=== PATIENT | male | born 1950 | race African-American/Black ===

== ENCOUNTER 2018-01-22 16:02 | Inpatient (IN) | payer OTHER ==
[2018-01-22 17:33] VITALS: BMI 35.2
--- NOTE | 2018-01-22 19:53 | HP ---
CIWA Score - CIWA Score Nausea/Vomitin-No Nausea/No Vomiting Muscle Tremors: 2 Anxiety: 3 Agitation: 3 Paroxysmal Sweats: 2 Orientation: 0-Oriented Tacttile Disturbances: 2-Mild Itch/Numbness/Burn Auditory Disturbances: 0-None Visual Disturbances: 0-None Headache: 0-None Present CIWA-Ar Total Score: 12 Admission ROS BHS - HPI Chief Complaint: alcohol withdrawla symptoms Allergies/Adverse Reactions: Allergies Allergy/AdvReac Type Severity Reaction Status Date / Time No Known Allergies Allergy Verified 01/22/18 19:09 History of Present Illness: 67 yo male with nicotine, marijuana and alcohol dependence is here seeking detox. Last detox 15 years ago at [facility]. PMHX urinary incontinence, UNGA b/t hearing aids DM II, HDL, HTN, seizure ( one year ago), OA , bipolar and bipolar. Denies suicidal / homicidal ideation. Exam Limitations: No Limitations - Ebola screening Have you traveled outside of the country in the last 21 days: No (N) Have you had contact with anyone from an Ebola affected area: No Have you been sick,other than usual withdrawal symptoms: No Do you have a fever: No - Review of Systems Constitutional: Changes in sleep, Other (weight gain x 10 lbs) EENT: reports: Cataracts (b/l), Other (glaucome both eyes) Respiratory: reports: No Symptoms reported Cardiac: reports: Palpitations, Other (cardiac Cath x 2, angina) GI: reports: No Symptoms Reported : reports: Incontinence Musculoskeletal: reports: Joint Pain Neuro: reports: No Symptoms reported Endocrine: reports: See HPI, Increased Thirst Hematology: reports: No Symptoms Reported Psychiatric: reports: Orientated x3, Anxious Patient History - Patient Medical History Hx Anemia: No Hx Asthma: No Hx Chronic Obstructive Pulmonary Disease (COPD): No Hx Cardiac Disorders: Yes (ANGINA 2012 AND 2014) Hx Congestive Heart Failure: Yes (SD 2016) Hx Hypertension: Yes Hx Hypercholesterolemia: Yes Hx Pacemaker: No HX Cerebrovascular Accident: Yes (2017) Hx Seizures: Yes (2017) Hx Dementia: No Hx Diabetes: Yes Hx Gastrointestinal Disorders: No Hx Liver Disease: No Hx Genitourinary Disorders: No Hx Sexually Transmitted Disorders: No Hx Renal Disease (ESRD): No Hx Thyroid Disease: No Hx Human Immunodeficiency Virus (HIV): No (last tested one week ago, Neg results ) Hx Hepatitis C: No Hx Depression: Yes Hx Suicide Attempt: Yes (2014 jumped infront of a bus ) Hx Bipolar Disorder: Yes Hx Schizophrenia: Yes - Patient Surgical History Past Surgical History: Yes Hx Cardiac Surgery: Yes (2012 AND 2014 CARDIAC CATH) Anesthesia Reaction: No - PPD History Previous Implant?: No Documented Results: Negative w/o proof PPD to be Administered?: Yes - Smoking Cessation Smoking history: Former smoker Have you smoked in the past 12 months: No Hx Chewing Tobacco Use: No Initiated information on smoking cessation: No - Substance & Tx. History Hx Alcohol Use: Yes Hx Substance Use: Yes Substance Use Type: Alcohol Hx Substance Use Treatment: Yes ([facility] 15 years ago ) - Substances Abused Alcohol Route: Oral Frequency: Daily Amount used: 5TH LIQUOR Age of first use: 22 Date of Last Use: 01/22/18 Marijuana/Hashish Route: Smoking Frequency: Daily Amount used: 6 BLUNTS Age of first use: 22 Date of Last Use: 01/22/18 Family Disease History - Family Disease History Family Disease History: Diabetes: Father (alive), CA: Mother ( ) Admission Physical Exam S - Vital Signs Vital Signs: Vital Signs - 24 hr 01/22/18 17:31 Temperature 98.6 F Pulse Rate 63 Respiratory 21 H Rate Blood Pressure 150/80 - Physical General Appearance: Yes: Mild Distress, Obese, Tremorous, Sweating, Anxious, Other (unkempt) HEENTM: Yes: Normal ENT Inspection, Normocephalic, Normal Voice, Pharynx Normal , Tm's normal, Hearing Decreased (b/l) Respiratory: Yes: Chest Non-Tender, Lungs Clear, Normal Breath Sounds, No Respiratory Distress, No Accessory Muscle Use Neck: Yes: Within Normal Limits Breast: Yes: Breast Exam Deferred Cardiology: Yes: Regular Rhythm, Regular Rate Abdominal: Yes: Normal Bowel Sounds, Non Tender, Soft, Protuberent Genitourinary: Yes: Within Normal Limits Back: Yes: Normal Inspection Musculoskeletal: Yes: full range of Motion, Gait Steady, Pelvis Stable, Back pain, Other (cane for ambulation) Extremities: Yes: Normal Capillary Refill, Normal Inspection, Normal Range of Motion, Non-Tender Neurological: Yes: it network administrator II-XII NML intact, Fully Oriented, Alert, Motor Strength 5/5, Depressed Affect Integumentary: Yes: Normal Color, Warm, Diaphoresis Lymphatic: Yes: Within Normal Limits - Diagnostic (1) Alcohol dependence with withdrawal Current Visit: Yes Status: Acute Qualifiers: Complication of substance-induced condition: uncomplicated Qualified Code(s ): F10.230 - Alcohol dependence with withdrawal, uncomplicated (2) Diabetes mellitus type 2 in obese Current Visit: Yes Status: Chronic (3) Hypertension Current Visit: Yes Status: Chronic Qualifiers: Hypertension type: essential hypertension Qualified Code(s): I10 - Essential (primary) hypertension (4) Arthritis Current Visit: Yes Status: Acute (5) Seizure Current Visit: Yes Status: Chronic (6) Urinary incontinence Current Visit: Yes Status: Chronic Qualifiers: Urinary Incontinence type: unspecified incontinence Qualified Code(s): R32 - Unspecified urinary incontinence Cleared for Admission BHS - Detox or Rehab [facility] Level of Care: Medically Managed Detox Regimen/Protocol: Librium S Breath Alcohol Content Breath Alcohol Content: 0 Urine Drug Screen - Results Drug Screen Negative: No Urine Drug Screen Results: THC-Marijuana
[2018-01-22] MEDS ORDERED: ALBUTEROL SO4 0.083% IH SOL 2.5 MG/3 ML VIAL.NEB. NEB PRN (19:58)
[2018-01-22] MEDS ORDERED: ALBUTEROL SO4 8 GM HFA INHALER IH PRN (19:58)
[2018-01-22] MEDS ORDERED: LOPERAMIDE HCL 2 MG CAPSULE PO PRN (20:05)
[2018-01-22] MEDS ORDERED: MENTHOL/PHENOL 1 EACH UD MM PRN (20:05)
[2018-01-22] MEDS ORDERED: MAGNESIUM CITRATE 300 ML BOTTLE PO PRN (20:05)
[2018-01-22] MEDS ORDERED: hydrOXYzine PAMOATE 50 MG CAPSULE (FP) PO PRN (20:05)
[2018-01-22] MEDS ORDERED: MAGNESIUM HYDROX 2400MG/30ML ORAL SUSPENSION 30 ML CUP PO PRN (20:05)
[2018-01-22] MEDS ORDERED: chlordiazePOXIDE HCL 25 MG CAPSULE PO ONE (20:05)
[2018-01-22] MEDS ORDERED: guaiFENesin/D-METHORPHAN HB 10 ML UNIT-DOSE CUPS PO PRN (20:05)
[2018-01-22] MEDS ORDERED: MAG HYDROX/AL HYDROX/SIMETH 30 ML UNIT-DOSE CUP PO PRN (20:05)
[2018-01-22] MEDS ORDERED: ACETAMINOPHEN 325 MG TABLET (FP) PO PRN (20:05)
[2018-01-22] MEDS ORDERED: P-EPHED 60MG/TRIPROLIDI 2.5MG TABLET PO PRN (20:05)
[2018-01-22] MEDS ORDERED: MELATONIN 5 MG TABLETS PO PRN (22:00)
[2018-01-22] MEDS: levETIRAcetam 500 MG TABLET (FP) PO SCH (22:34)
[2018-01-22] MEDS: chlordiazePOXIDE HCL 25 MG CAPSULE PO SCH (22:35)
[2018-01-22] MEDS: THIAMINE HCL 100 MG TABLET (FP) PO SCH (22:35)
[2018-01-23 01:01] LABS: URINE APPEARANCE CLEAR; URINE BILIRUBIN NEGATIVE (<2.0 mg/dL); URINE COLOR YELLOW; URINE GLUCOSE (UA) NEGATIVE (NEGATIVE); URINE KETONE NEGATIVE (NEGATIVE); URINE LEUK ESTERASE NEGATIVE (NEGATIVE); URINE NITRITE NEGATIVE (NEGATIVE); URINE PROTEIN NEGATIVE (NEGATIVE); URINE UROBILINOGEN NEGATIVE mg/dL (0.2-1.0)
[2018-01-23] MEDS: metFORMIN HCL 500 MG TABLET (FP) PO SCH ×2 (06:37→17:49)
[2018-01-23] MEDS: chlordiazePOXIDE HCL 25 MG CAPSULE PO SCH ×4 (06:38→22:50)
[2018-01-23 10:04] LABS: HEMATOCRIT 38.8 % (35.4-49); HEMOGLOBIN 12.4 GM/dL (11.7-16.9); MCH 28.1 pg (25.7-33.7); MCHC 31.9 g/dl (32.0-35.9); MEAN PLT VOLUME 9.6 fl (7.5-11.1); PLATELET COUNT 224 K/MM3 (134-434); RBC 4.41 M/mm3 (4.00-5.60); RDW 13.7 % (11.9-15.9); WHITE BLOOD COUNT 6.9 K/mm3 (4.0-10.0)
--- NOTE | 2018-01-23 10:13 | EKG ---
Test Reason : Blood Pressure : / mmHG Vent. Rate : 067 BPM Atrial Rate : 067 BPM P-R Int : 158 ms QRS Dur : 088 ms QT Int : 370 ms P-R-T Axes : 048 042 056 degrees QTc Int : 390 ms SINUS RHYTHM WITH OCCASIONAL PREMATURE VENTRICULAR COMPLEXES AND PREMATURE ATRIAL COMPLEXES OTHERWISE NORMAL ECG NO PREVIOUS ECGS AVAILABLE Confirmed by LIZBETH WEST MD ([id number]) on 01/23/2018 10:13:40 AM Referred By: Confirmed By:LIZBETH WEST MD
[2018-01-23 10:30] LABS: ALK PHOS 62 U/L (45-117); ANION GAP 4 MMOL/L (8-16); BILIRUBIN,TOTAL 0.3 mg/dL (0.2-1); BLOOD UREA NITROGEN 14 mg/dL (7-18); CALCIUM 9.1 mg/dL (8.5-10.1); CHLORIDE 109 mmol/L (98-107); CO2 28 mmol/L (21-32); CREATININE 0.7 mg/dL (0.55-1.3); GLUCOSE,RANDOM 86 mg/dL (74-106); POTASSIUM 4.2 mmol/L (3.5-5.1); SGOT/AST 14 U/L (15-37); SGPT/ALT 15 U/L (13-61); SODIUM 140 mmol/L (136-145); TOT PROT 6.2 g/dl (6.4-8.2)
--- NOTE | 2018-01-23 10:38 | PN ---
S CIWA - CIWA Score Nausea/Vomitin-Mild Nausea/No Vomiting Muscle Tremors: 1-None Visible, but [place] Anxiety: 1-Mildly Anxious Agitation: 0-Normal Activity Paroxysmal Sweats: No Perspiration Orientation: 0-Oriented Tacttile Disturbances: 0-None Auditory Disturbances: 0-None Visual Disturbances: 0-None Headache: 3-Moderate CIWA-Ar Total Score: 6 BHS Progress Note (SOAP) Subjective: PATIENT C/O MILD NAUSEA, SHAKES, INSOMNIA AND HEADACHE. Objective: 01/23/18 10:36 Vital Signs Temperature 97.3 F L 01/23/18 10:01 Pulse Rate 66 01/23/18 10:01 Respiratory Rate 18 01/23/18 10:01 Blood Pressure 156/80 01/23/18 10:01 O2 Sat by Pulse Oximetry (%) Laboratory Tests 01/23/18 01/23/18 01/23/18 00:30 06:19 07:00 WBC 6.9 RBC 4.41 Hgb 12.4 Hct 38.8 MCV 88.0 MCH 28.1 MCHC 31.9 L RDW 13.7 Plt Count 224 MPV 9.6 Sodium Potassium Chloride Carbon Dioxide Anion Gap BUN Creatinine Creat Clearance w eGFR POC Glucometer 103 Random Glucose Calcium Total Bilirubin AST ALT Alkaline Phosphatase Total Protein Albumin Urine Color Yellow Urine Appearance Clear Urine pH 6.0 Ur Specific [place] 1.026 Urine Protein Negative Urine Glucose (UA) Negative Urine Ketones Negative Urine Blood Negative Urine Nitrite Negative Urine Bilirubin Negative Urine Urobilinogen Negative Ur Leukocyte Esterase Negative 01/23/18 07:00 WBC RBC Hgb Hct MCV MCH MCHC RDW Plt Count MPV Sodium 140 Potassium 4.2 Chloride 109 H Carbon Dioxide 28 Anion Gap 4 L BUN 14 Creatinine 0.7 Creat Clearance w eGFR > 60 POC Glucometer Random Glucose 86 Calcium 9.1 Total Bilirubin 0.3 AST 14 L ALT 15 Alkaline Phosphatase 62 Total Protein 6.2 L Albumin 3.0 L Urine Color Urine Appearance Urine pH Ur Specific [place] Urine Protein Urine Glucose (UA) Urine Ketones Urine Blood Urine Nitrite Urine Bilirubin Urine Urobilinogen Ur Leukocyte Esterase PE: ALERT AND ORIENTED SKIN WARM AND DRY CAR S1S2 RESP CTA BL EXT + MILD TREMORS, FULL ROM, + PEDAL EDEMA B/L Assessment: 01/23/18 10:36 WITHDRAWAL SYNDROME Plan: CONTINUE DETOX ENCOURAGE ORAL FLUIDS CONTINUE TO MONITOR CLINICALLY LEG ELEVATION ENCOURAGED WHILE IN BED
[2018-01-23] MEDS: ASPIRIN 81 MG CHEWABLE TABLETS PO SCH (10:57)
[2018-01-23] MEDS: levETIRAcetam 500 MG TABLET (FP) PO SCH ×2 (10:57→22:50)
[2018-01-23] MEDS: FUROSEMIDE 20 MG TABLET (FP) PO SCH (10:58)
[2018-01-23] MEDS: chlordiazePOXIDE HCL 25 MG CAPSULE PO PRN (10:58)
[2018-01-23] MEDS: CLOPIDOGREL BISULFATE 75 MG TABLET (FP) PO SCH (10:58)
[2018-01-23] MEDS: PRENATAL VITAMINS W/ FOLIC ACID TABLET (FP) PO SCH (10:58)
--- NOTE | 2018-01-23 11:09 | CONSULT ---
[facility] Psychiatric Consult - Data Date of interview: 01/23/18 Admission source: [facility] Identifying data: Patient is a 67 year old single male, father of six, unemployed, homeless, and is currently supported by [facility]. This is patient's first admission to detox at [facility]. Patient admitted to for alcohol dependence. Substance Abuse History: - Smoking Cessation. Smoking history: Former smoker. Have you smoked in the past 12 months: No. Hx Chewing Tobacco Use: No. Initiated information on smoking cessation: No. - Substance & Tx. History. Hx Alcohol Use: Yes. Hx Substance Use: Yes. Substance Use Type: Alcohol. Hx Substance Use Treatment: Yes ([facility] 15 years ago ). - Substances Abused. Alcohol. Route: Oral. Frequency: Daily. Amount used: 5TH LIQUOR. Age of first use: 22. Date of Last Use: 01/22/18. Marijuana/Hashish. Route: Smoking. Frequency: Daily. Amount used: 6 BLUNTS. Age of first use: 22. Date of Last Use: 01/22/18 Medical History: Cataract, detach retina, cardiac stent Psychiatric History: Patient's first psychiatric contact was at 20 years of age after reporting that he felt depressed and was experiencing auditory halluincations. Patient recalls accepting thorazine during that time. He reports multiple psychiatric hospitalizations, most recently in 2014 at [facility] after a suicide attempt via jumping in front of a bus. Patient is also known to [facility], and [facility]. Current outpatient psychiatric care is provided at [facility] in [place], [place]. He reports taking haldol 5mg BID + Seroquel 50mg BID. Self reports h/o schizophrenia. No psychosis noted. Patient's information on psychotrophic medication is questionable. No prior records in chart and no information on pharmacy claims. Will contact [facility] for additional collaterol. Physical/Sexual Abuse/Trauma History: denies. Mental Status Exam - Mental Status Exam Alert and Oriented to: Time, Place, Person Cognitive Function: Good Patient Appearance: Well Groomed Mood: Euthymic Affect: Mood Congruent Patient Behavior: Fatigued, Cooperative Speech Pattern: Appropriate Voice Loudness: Normal Thought Process: Intact Thought Disorder: Not Present Hallucinations: Denies Suicidal Ideation: Denies Homicidal Ideation: Denies Insight/Judgement: Poor Sleep: Poorly Appetite: Fair Muscle strength/Tone: Normal Gait/Station: Normal Psychiatric Findings - Problem List ([place] 1, 2,3) (1) Schizophrenia Current Visit: Yes Status: Chronic (2) Alcohol dependence with withdrawal Current Visit: Yes Status: Acute Qualifiers: Complication of substance-induced condition: uncomplicated Qualified Code(s ): F10.230 - Alcohol dependence with withdrawal, uncomplicated - Initial Treatment Plan Initial Treatment Plan: Psychoeducation provided. Detoxification in progress. Contact made with the [facility] at [phone] and able to speak to JESSICA Loomis who stated patient has a h/o noncompliance to medications and is not adherent to accepting haldol and seroquel. JESSICA Rodriguez did mention that patient does accept depakote 250 BID. Will continue patient on depakote 250mg BID and will order seroquel 50mg for insomnia. Valproic acid level ordered for 01/24/18. Verbal consent given.
[2018-01-23] MEDS: THIAMINE HCL 100 MG TABLET (FP) PO SCH (22:50)
[2018-01-23] MEDS: QUEtiapine FUMARATE 50 MG TABLET PO SCH (22:50)
[2018-01-23] MEDS: DIVALPROEX SODIUM 250 MG TABLET E.C. PO SCH (22:50)
[2018-01-24] MEDS: PRENATAL VITAMINS W/ FOLIC ACID TABLET (FP) PO SCH (10:42)
[2018-01-24] MEDS: FUROSEMIDE 20 MG TABLET (FP) PO SCH (10:42)
[2018-01-24] MEDS: levETIRAcetam 500 MG TABLET (FP) PO SCH ×2 (10:42→22:51)
[2018-01-24] MEDS: CLOPIDOGREL BISULFATE 75 MG TABLET (FP) PO SCH (10:42)
[2018-01-24] MEDS: chlordiazePOXIDE HCL 25 MG CAPSULE PO PRN (10:42)
[2018-01-24] MEDS: DIVALPROEX SODIUM 250 MG TABLET E.C. PO SCH ×2 (10:42→22:51)
[2018-01-24] MEDS: ASPIRIN 81 MG CHEWABLE TABLETS PO SCH (10:42)
[2018-01-24] MEDS: chlordiazePOXIDE HCL 25 MG CAPSULE PO SCH ×2 (10:45→18:13)
--- NOTE | 2018-01-24 14:23 | PN ---
[facility] CIWA - CIWA Score Nausea/Vomitin-No Nausea/No Vomiting Muscle Tremors: 1-None Visible, but [place] Anxiety: 3 Agitation: 1-Slight > Activity Paroxysmal Sweats: 2 Orientation: 0-Oriented Tacttile Disturbances: 1-Very Mild Itch/Numbness Auditory Disturbances: 0-None Visual Disturbances: 1-Very Mild Sensitivity Headache: 0-None Present CIWA-Ar Total Score: 9 S Progress Note (SOAP) Subjective: back pain, body aches, interrupted sleep Objective: 01/24/18 14:22 Vital Signs Temperature 97.5 F L 01/24/18 10:42 Pulse Rate 62 01/24/18 10:42 Respiratory Rate 16 01/24/18 10:42 Blood Pressure 148/68 01/24/18 10:42 O2 Sat by Pulse Oximetry (%) Laboratory Last Values WBC 6.9 K/mm3 (4.0-10.0) 01/23/18 07:00 RBC 4.41 M/mm3 (4.00-5.60) 01/23/18 07:00 Hgb 12.4 GM/dL (11.7-16.9) 01/23/18 07:00 Hct 38.8 % (35.4-49) 01/23/18 07:00 MCV 88.0 fl (80-96) 01/23/18 07:00 MCH 28.1 pg (25.7-33.7) 01/23/18 07:00 MCHC 31.9 g/dl (32.0-35.9) L 01/23/18 07:00 RDW 13.7 % (11.9-15.9) 01/23/18 07:00 Plt Count 224 K/MM3 (134-434) 01/23/18 07:00 MPV 9.6 fl (7.5-11.1) 01/23/18 07:00 Sodium 140 mmol/L (136-145) 01/23/18 07:00 Potassium 4.2 mmol/L (3.5-5.1) 01/23/18 07:00 Chloride 109 mmol/L (98-107) H 01/23/18 07:00 Carbon Dioxide 28 mmol/L (21-32) 01/23/18 07:00 Anion Gap 4 MMOL/L (8-16) L 01/23/18 07:00 BUN 14 mg/dL (7-18) 01/23/18 07:00 Creatinine 0.7 mg/dL (0.55-1.3) 01/23/18 07:00 Creat Clearance w eGFR > 60 (>60) 01/23/18 07:00 POC Glucometer 85 UNITS (80-120) 01/24/18 07:42 Random Glucose 86 mg/dL (74-106) 01/23/18 07:00 Calcium 9.1 mg/dL (8.5-10.1) 01/23/18 07:00 Total Bilirubin 0.3 mg/dL (0.2-1) 01/23/18 07:00 AST 14 U/L (15-37) L 01/23/18 07:00 ALT 15 U/L (13-61) 01/23/18 07:00 Alkaline Phosphatase 62 U/L (45-117) 01/23/18 07:00 Total Protein 6.2 g/dl (6.4-8.2) L 01/23/18 07:00 Albumin 3.0 g/dl (3.4-5.0) L 01/23/18 07:00 Urine Color Yellow 01/23/18 00:30 Urine Appearance Clear 01/23/18 00:30 Urine pH 6.0 (5.0-8.0) 01/23/18 00:30 Ur Specific [place] 1.026 (1.010-1.035) 01/23/18 00:30 Urine Protein Negative (NEGATIVE) 01/23/18 00:30 Urine Glucose (UA) Negative (NEGATIVE) 01/23/18 00:30 Urine Ketones Negative (NEGATIVE) 01/23/18 00:30 Urine Blood Negative (NEGATIVE) 01/23/18 00:30 Urine Nitrite Negative (NEGATIVE) 01/23/18 00:30 Urine Bilirubin Negative (<2.0 mg/dL) 01/23/18 00:30 Urine Urobilinogen Negative mg/dL (0.2-1.0) 01/23/18 00:30 Ur Leukocyte Esterase Negative (NEGATIVE) 01/23/18 00:30 Valproic Acid 44.8 ug/ml (50-100) L 01/24/18 08:10 RPR Titer Nonreactive (NONREACTIVE) 01/23/18 07:00 Aox3 no distress no adventitious breath sounds full ROM ambulating in the unit with cane Assessment: 01/24/18 14:22 wihtdrawal sx Plan: increase fluids continue detox continue to monitor
[2018-01-24] MEDS: LIDOCAINE 5% TOPICAL PATCH TP SCH (18:14)
[2018-01-24] MEDS: metFORMIN HCL 500 MG TABLET (FP) PO SCH (18:14)
[2018-01-24] MEDS: QUEtiapine FUMARATE 50 MG TABLET PO SCH (22:51)
[2018-01-24] MEDS: chlordiazePOXIDE 5 MG CAPSULE PO SCH (22:51)
[2018-01-24] MEDS: THIAMINE HCL 100 MG TABLET (FP) PO SCH (22:51)
[2018-01-24] MEDS: LIDOCAINE PATCH REMOVAL MC SCH (22:53)
[2018-01-25] MEDS: chlordiazePOXIDE HCL 25 MG CAPSULE PO SCH (01:22)
[2018-01-25] MEDS: metFORMIN HCL 500 MG TABLET (FP) PO SCH ×3 (01:22→18:02)
[2018-01-25] MEDS: chlordiazePOXIDE 5 MG CAPSULE PO SCH ×3 (05:40→18:02)
[2018-01-25] MEDS: levETIRAcetam 500 MG TABLET (FP) PO SCH ×2 (10:08→22:48)
[2018-01-25] MEDS: CLOPIDOGREL BISULFATE 75 MG TABLET (FP) PO SCH (10:08)
[2018-01-25] MEDS: FUROSEMIDE 20 MG TABLET (FP) PO SCH (10:08)
[2018-01-25] MEDS: ASPIRIN 81 MG CHEWABLE TABLETS PO SCH (10:08)
[2018-01-25] MEDS: DIVALPROEX SODIUM 250 MG TABLET E.C. PO SCH ×2 (10:08→22:48)
[2018-01-25] MEDS: PRENATAL VITAMINS W/ FOLIC ACID TABLET (FP) PO SCH (10:08)
[2018-01-25] MEDS: LIDOCAINE 5% TOPICAL PATCH TP SCH (10:10)
--- NOTE | 2018-01-25 15:15 | PN ---
BHS Progress Note (SOAP) Subjective: feeling better no tremor less sweat no gi distress Objective: 01/25/18 15:12 Vital Signs Temperature 97.9 F 01/25/18 14:32 Pulse Rate 76 01/25/18 14:32 Respiratory Rate 16 01/25/18 14:32 Blood Pressure 150/81 01/25/18 14:32 O2 Sat by Pulse Oximetry (%) Laboratory Last Values WBC 6.9 K/mm3 (4.0-10.0) 01/23/18 07:00 RBC 4.41 M/mm3 (4.00-5.60) 01/23/18 07:00 Hgb 12.4 GM/dL (11.7-16.9) 01/23/18 07:00 Hct 38.8 % (35.4-49) 01/23/18 07:00 MCV 88.0 fl (80-96) 01/23/18 07:00 MCH 28.1 pg (25.7-33.7) 01/23/18 07:00 MCHC 31.9 g/dl (32.0-35.9) L 01/23/18 07:00 RDW 13.7 % (11.9-15.9) 01/23/18 07:00 Plt Count 224 K/MM3 (134-434) 01/23/18 07:00 MPV 9.6 fl (7.5-11.1) 01/23/18 07:00 Sodium 140 mmol/L (136-145) 01/23/18 07:00 Potassium 4.2 mmol/L (3.5-5.1) 01/23/18 07:00 Chloride 109 mmol/L (98-107) H 01/23/18 07:00 Carbon Dioxide 28 mmol/L (21-32) 01/23/18 07:00 Anion Gap 4 MMOL/L (8-16) L 01/23/18 07:00 BUN 14 mg/dL (7-18) 01/23/18 07:00 Creatinine 0.7 mg/dL (0.55-1.3) 01/23/18 07:00 Creat Clearance w eGFR > 60 (>60) 01/23/18 07:00 POC Glucometer 98 UNITS (80-120) 01/24/18 16:40 Random Glucose 86 mg/dL (74-106) 01/23/18 07:00 Calcium 9.1 mg/dL (8.5-10.1) 01/23/18 07:00 Total Bilirubin 0.3 mg/dL (0.2-1) 01/23/18 07:00 AST 14 U/L (15-37) L 01/23/18 07:00 ALT 15 U/L (13-61) 01/23/18 07:00 Alkaline Phosphatase 62 U/L (45-117) 01/23/18 07:00 Total Protein 6.2 g/dl (6.4-8.2) L 01/23/18 07:00 Albumin 3.0 g/dl (3.4-5.0) L 01/23/18 07:00 Urine Color Yellow 01/23/18 00:30 Urine Appearance Clear 01/23/18 00:30 Urine pH 6.0 (5.0-8.0) 01/23/18 00:30 Ur Specific [place] 1.026 (1.010-1.035) 01/23/18 00:30 Urine Protein Negative (NEGATIVE) 01/23/18 00:30 Urine Glucose (UA) Negative (NEGATIVE) 01/23/18 00:30 Urine Ketones Negative (NEGATIVE) 01/23/18 00:30 Urine Blood Negative (NEGATIVE) 01/23/18 00:30 Urine Nitrite Negative (NEGATIVE) 01/23/18 00:30 Urine Bilirubin Negative (<2.0 mg/dL) 01/23/18 00:30 Urine Urobilinogen Negative mg/dL (0.2-1.0) 01/23/18 00:30 Ur Leukocyte Esterase Negative (NEGATIVE) 01/23/18 00:30 Valproic Acid 44.8 ug/ml (50-100) L 01/24/18 08:10 RPR Titer Nonreactive (NONREACTIVE) 01/23/18 07:00 lab noted Assessment: 01/25/18 15:14 mild withdrawal sx hypertension Plan: medically supervised detox begin amlodopine 5 mg
[2018-01-25] MEDS: amLODIPine BESYLATE 5 MG TABLET (FP) PO SCH (20:12)
[2018-01-25] MEDS: THIAMINE HCL 100 MG TABLET (FP) PO SCH (22:48)
[2018-01-25] MEDS: QUEtiapine FUMARATE 50 MG TABLET PO SCH (22:48)
[2018-01-25] MEDS: chlordiazePOXIDE HCL 10 MG CAPSULE PO SCH (22:49)
[2018-01-25] MEDS: LIDOCAINE PATCH REMOVAL MC SCH (22:49)
[2018-01-26] MEDS: metFORMIN HCL 500 MG TABLET (FP) PO SCH (07:09)
[2018-01-26] MEDS: chlordiazePOXIDE HCL 10 MG CAPSULE PO SCH ×2 (07:10→10:27)
--- NOTE | 2018-01-26 08:32 | DS ---
[facility] Detox Discharge Summary Admission Date: 01/22/18 Discharge Date: 01/26/18 - History Present History: Alcohol Dependence - Physical Exam Results Vital Signs: Vital Signs Temperature 97.9 F 01/26/18 06:00 Pulse Rate 75 01/26/18 06:00 Respiratory Rate 20 01/26/18 06:00 Blood Pressure 154/78 01/26/18 06:00 O2 Sat by Pulse Oximetry (%) - Treatment Hospital Course: Detox Protocol Followed, Detoxed Safely, Responded well, Discharged Condition Good, Rehab Referral Accepted - Medication Discharge Medications: Ambulatory Orders Aspirin 81 mg PO DAILY 01/22/18 Furosemide [Lasix] 20 mg PO DAILY 01/22/18 Haloperidol [Haldol -] 5 mg PO BID 01/22/18 Quetiapine Fumarate [Seroquel -] 50 mg PO BID 01/22/18 Albuterol Sulfate Inhaler - [Ventolin HFA Inhaler -] 2 puff IH Q4H PRN #1 inhaler 01/25/18 Clopidogrel Bisulfate [Plavix] 75 mg PO DAILY #30 tablet 01/25/18 Metformin HCl [Glucophage] 500 mg PO BID #60 tablet 01/25/18 levETIRAcetam [Keppra -] 500 mg PO BID #60 tablet 01/25/18 - Diagnosis (1) Alcohol dependence with withdrawal Current Visit: Yes Status: Chronic Qualifiers: Complication of substance-induced condition: uncomplicated Qualified Code(s ): F10.230 - Alcohol dependence with withdrawal, uncomplicated (2) Arthritis Current Visit: Yes Status: Chronic (3) Back pain Current Visit: Yes Status: Chronic Qualifiers: Back pain location: low back pain Chronicity: unspecified (4) Diabetes mellitus type 2 in obese Current Visit: Yes Status: Chronic (5) Hypertension Current Visit: Yes Status: Chronic Qualifiers: Hypertension type: essential hypertension Qualified Code(s): I10 - Essential (primary) hypertension (6) Schizophrenia Current Visit: Yes Status: Chronic (7) Seizure Current Visit: Yes Status: Chronic (8) Urinary incontinence Current Visit: Yes Status: Chronic Qualifiers: Urinary Incontinence type: unspecified incontinence Qualified Code(s): R32 - Unspecified urinary incontinence - AMA Did Patient Leave Against Medical Advice: No (referred to [facility] for outpatient aftercare)
[2018-01-26] MEDS: ASPIRIN 81 MG CHEWABLE TABLETS PO SCH (10:26)
[2018-01-26] MEDS: FUROSEMIDE 20 MG TABLET (FP) PO SCH (10:26)
[2018-01-26] MEDS: CLOPIDOGREL BISULFATE 75 MG TABLET (FP) PO SCH (10:26)
[2018-01-26] MEDS: PRENATAL VITAMINS W/ FOLIC ACID TABLET (FP) PO SCH (10:26)
[2018-01-26] MEDS: levETIRAcetam 500 MG TABLET (FP) PO SCH (10:26)
[2018-01-26] MEDS: DIVALPROEX SODIUM 250 MG TABLET E.C. PO SCH (10:26)
[2018-01-26] MEDS: LIDOCAINE 5% TOPICAL PATCH TP SCH (10:27)
[2018-01-26] MEDS: amLODIPine BESYLATE 5 MG TABLET (FP) PO SCH (10:32)
[2018-01-26 13:37] VITALS: BP 119/57; PULSE 77; TEMP 98.8
== END 2018-01-26 13:35 | disposition home or self-care (01) | DRG 897 ==
LOC: YASAS 16:02 → Y6N 19:00
PROC: HZ2ZZZZ Detoxification Services for Substance Abuse Treatment (ICD-10-PCS; principal; 2018-01-21)
DX: F10.230 Alcohol dependence with withdrawal, uncomplicated (principal); F20.9 Schizophrenia, unspecified; I10 Essential (primary) hypertension; I25.2 Old myocardial infarction; M19.90 Unspecified osteoarthritis, unspecified site; M54.5 Low back pain; G89.29 Other chronic pain; R32 Unspecified urinary incontinence; G40.909 Epilepsy, unspecified, not intractable, without status epilepticus; E66.9 Obesity, unspecified; Z68.35 Body mass index [BMI] 35.0-35.9, adult; Z87.891 Personal history of nicotine dependence; Z95.5 Presence of coronary angioplasty implant and graft; Z86.73 Personal history of transient ischemic attack (TIA), and cerebral infarction without residual deficits; Z91.5 Personal history of self-harm
CPT/HCPCS: 36415; 80053; 80164; 80177; 81003; 82962; 85027; 86593; 93005; 93010